=== PATIENT | female | born 1985 | race Caucasian/White ===

== ENCOUNTER 2018-05-03 09:40 | Inpatient (IN) ==
[2018-05-03] MEDS ORDERED: 0.9 % Sodium Chloride 1,000 ML IVC ONE (09:47)
[2018-05-03] MEDS ORDERED: Isovue-370 500 ML INFUS..BTL IV ONE (09:53)
--- NOTE | 2018-05-03 10:00 | Emergency Department Note ---
Disposition Clinical Impression: Groin abscess Cellulitis Qualifiers: Site of cellulitis: trunk Site of cellulitis of trunk: abdominal wall Qualified Code(s): L03.311 - Cellulitis of abdominal wall Disposition: Admitted As Inpatient Condition: Undetermined Referrals: NONE,PCP [Family Provider] - Forms: ED Satisfaction Letter Time of Disposition: 13:11 Skin/Abscess/FB HPI Chief complaint: ED Skin/Abscess/Foreign Body Stated complaint: "groin abscess" Time Seen by Provider: 05/03/18 09:46 Source: patient Mode of arrival: ambulatory Limitations: no limitations Nursing Notes Reviewed: Yes Vital Signs Reviewed: Yes HPI Narrative: 32-year-old female with history of MRSA and previous abscesses, arrives to the emergency department with abscess in her right inguinal region. The patient states this started roughly 4 days ago. The patient has been using hot compresses and heating pad which actually burned her. The patient denies any fevers but admits the patient states she went to [facility] where a evaluated her and stated that their surgeons are all on vacation and could not help sedate her pain. The patient left AMA that point. Patient denies any other complaints at this time other than chills. She is tearful in the room and is crying in pain. In triage the patient's abscess area burst open with purulent bloody discharge. Home Medications Medication Instructions Recorded Confirmed No Known Home Drugs 05/03/18 05/03/18 Allergies Allergy/AdvReac Type Severity Reaction Status Date / Time azithromycin [From Zithromax] Allergy See Verified 05/03/18 09:44 Comments All systems ED: reviewed and negative except as stated. Constitutional: Reports: chills. Denies: fever, weakness ENT ED: Denies: congestion Cardiovascular: Denies: chest pain Respiratory: Denies: dyspnea Gastrointestinal: Reports: nausea. Denies: abdominal pain, vomiting, diarrhea Genitourinary: Denies: urgency, dysuria Musculoskeletal: Denies: back pain, neck pain Integumentary: Reports: lesions Neurological: Denies: headache Past Medical History - Past Medical History Attestation: Yes The following information was validated with the patient. Source: patient Medical history: Reports: no medical history Surgical history: Reports: non-contributory Psychiatric history: Reports: anxiety, depression - Social History Smoking Status: Current every day smoker Smokeless Tobacco Status: No Alcohol use: Reports: none Drug use: Reports: marijuana Physical Exam - General Limitations: no limitations General appearance: alert - Head Head exam: atraumatic, normocephalic, normal inspection - Eye Eye exam: Present: normal appearance, PERRL, EOMI - ENT ENT exam: normal exam, normal oropharynx, mucous membranes moist - Neck Neck exam: Present: normal inspection, full ROM, trachea midline - Chest Chest inspection: Present: normal inspection, symmetric chest wall rise - Respiratory Respiratory exam: Present: normal lung sounds bilaterally - Cardiovascular Cardiovascular exam: Present: normal rhythm, tachycardia, normal heart sounds - Abdominal Exam Abdominal exam: Present: soft, tenderness (Right inguinal region). Absent: distention, guarding, rebound, rigidity, scar - Extremities Exam Extremities exam: Present: normal inspection, full ROM. Absent: tenderness, pedal edema - Neurological Exam Neurological exam: Present: alert, oriented X3 - Skin Skin exam: Present: warm, dry, other (13 x 4 cm area of induration in right inguinal region. Surrouding cellulitis noted around abscess. Small opening with purulent and bloody discharge. Hot to the touch.) Course - Consultations Consultation #1: Spoke to Dr. Clark in general surgery who will see patient. Time: 13:02 Vital Signs Temperature 98.1 F 05/03/18 09:43 Pulse Rate 121 05/03/18 09:43 Respiratory Rate 18 05/03/18 09:43 Blood Pressure 136/79 05/03/18 09:43 O2 Sat by Pulse Oximetry 100 05/03/18 09:43 Temperature 98.1 F 05/03/18 09:47 Pulse Rate 92 05/03/18 12:09 Respiratory Rate 16 05/03/18 12:09 Blood Pressure 131/80 05/03/18 12:09 O2 Sat by Pulse Oximetry 97 05/03/18 12:09 Oxygen Delivery Oxygen Delivery Room Air Skin/Abscess/Foreign Body - MDM Narrative Medical decision making narrative: Patient's workup in the emergency department demonstrates findings concerning for cellulitis informing abscess of the right abdomen. The patient sialitis is extensive and beginning to radiate in the lateral aspects. The patient was given 1 dose of vancomycin and we will place the patient on cefepime as well. General surgery was consulted given the location of her abscess and cellulitis. We will admit the patient to the hospital at this time. Her tachycardia has resolved. The patient still complaining a large amount of pain. We do not feel comfortable discharging the patient home at this time. Patient was made aware and agrees to plan. No further questions or concerns. General surgery, Dr. Clark, will see the patient in consultation. Accepted by Dr. Brito. - Lab Data Lab results reviewed: Yes I reviewed the patient's lab results. Result diagrams: 05/03/18 09:51 05/03/18 11:00 Lab Results 05/03/18 05/03/18 05/03/18 Range/Units 09:51 09:51 10:01 WBC 9.2 (4.3-11.1) K/mcL RBC 4.25 (3.82-4.97) M/mcL Hgb 13.4 (11.5-15.4) g/dL Hct 39.1 (35.3-44.9) % MCV 92.0 (83.0-100.0) fL MCH 31.5 (28.0-33.3) pg MCHC 34.3 (31.6-35.5) g/dL RDW 12.8 (11.5-14.5) % Plt Count 220 (140-400) K/mcL MPV 9.9 (9.4-12.4) fL Immature Gran % 0.2 (0-4) % Seg Neutrophils % 75.9 % Lymphocytes % 12.6 % Monocytes % 10.4 % Eosinophils % 0.7 % Basophils % 0.2 % Neutrophils # 7.0 (1.6-8.9) K/mcL Lymphocytes # 1.2 (0.6-4.6) K/mcL Monocytes # 1.0 (0.0-1.3) K/mcL Eosinophils # 0.1 (0.0-0.6) K/mcL Basophils # 0.0 (0.0-0.2) K/mcL Carbon Dioxide (23-29) mEq/L BUN (6-20) mg/dL Glucose (70-105) mg/dL Lactic Acid 1.7 (0.5-2.2) mmol/L Calcium (8.6-10.3) mg/dL Serum , Qual (Negative) Urine Test (Negative) Specimen Rejected Hemolyzed 05/03/18 05/03/18 05/03/18 Range/Units 11:00 11:28 11:32 WBC (4.3-11.1) K/mcL RBC (3.82-4.97) M/mcL Hgb (11.5-15.4) g/dL Hct (35.3-44.9) % MCV (83.0-100.0) fL MCH (28.0-33.3) pg MCHC (31.6-35.5) g/dL RDW (11.5-14.5) % Plt Count (140-400) K/mcL MPV (9.4-12.4) fL Immature Gran % (0-4) % Seg Neutrophils % % Lymphocytes % % Monocytes % % Eosinophils % % Basophils % % Neutrophils # (1.6-8.9) K/mcL Lymphocytes # (0.6-4.6) K/mcL Monocytes # (0.0-1.3) K/mcL Eosinophils # (0.0-0.6) K/mcL Basophils # (0.0-0.2) K/mcL Carbon Dioxide 28 (23-29) mEq/L BUN 10 (6-20) mg/dL Glucose 120 H (70-105) mg/dL Lactic Acid (0.5-2.2) mmol/L Calcium 8.6 (8.6-10.3) mg/dL Serum , Qual Negative (Negative) Urine Test Negative (Negative) Specimen Rejected - Radiology Data Radiology results reviewed: Yes I reviewed the patient's radiology results. Abdomen/Pelvis CT 05/03/18 09:53 IMPRESSION: 1. Inflammatory stranding within the right inguinal soft tissues likely representing cellulitis with small developing abscess. 2. Hepatomegaly. D/ / Alfred Neal MD / Alfred Neal MD Interpreting Provider: Alfred Neal MD
[2018-05-03 10:16] LABS: Basophils % 0.2 %; Eosinophils # 0.1 K/mcL (0.0-0.6); Eosinophils % 0.7 %; Hematocrit 39.1 % (35.3-44.9); Hemoglobin 13.4 g/dL (11.5-15.4); Immature Granulocytes % 0.2 % (0-4); Lymphocytes # 1.2 K/mcL (0.6-4.6); Lymphocytes % 12.6 %; Mean Corpuscular HGB Conc 34.3 g/dL (31.6-35.5); Mean Corpuscular Hemoglobin 31.5 pg (28.0-33.3); Mean Platelet Volume 9.9 fL (9.4-12.4); Monocytes % 10.4 %; Platelet Count 220 K/mcL (140-400); Red Blood Count 4.25 M/mcL (3.82-4.97); Red Cell Distribution Width 12.8 % (11.5-14.5); Segmented Neutrophils % 75.9 %
--- NOTE | 2018-05-03 10:39 | Emergency Department Note ---
Disposition Clinical Impression: Groin abscess Disposition: Admitted As Inpatient Referrals: NONE,PCP [Family Provider] - Forms: ED Satisfaction Letter General Adult HPI - General Chief complaint: ED Skin/Abscess/Foreign Body Stated complaint: "groin abscess" Time Seen by Provider: 05/03/18 09:46 Source: patient Mode of arrival: ambulatory Limitations: no limitations - History of Present Illness Pain Scale: 10 - Related Data Allergies Allergy/AdvReac Type Severity Reaction Status Date / Time azithromycin [From Zithromax] Allergy See Verified 05/03/18 09:44 Comments Constitutional: Reports: chills. Denies: fever, weakness ENT ED: Denies: congestion Cardiovascular: Denies: chest pain Respiratory: Denies: dyspnea Gastrointestinal: Reports: nausea. Denies: abdominal pain, vomiting, diarrhea Genitourinary: Denies: urgency, dysuria Musculoskeletal: Denies: back pain, neck pain Integumentary: Reports: lesions Neurological: Denies: headache Past Medical History - Past Medical History Medical history: Reports: no medical history Surgical history: Reports: non-contributory Psychiatric history: Reports: anxiety, depression - Social History Smoking Status: Current every day smoker Smokeless Tobacco Status: No Alcohol use: Reports: none Drug use: Reports: marijuana Physical Exam - General Limitations: no limitations General appearance: alert Course Vital Signs Temperature 98.1 F 05/03/18 09:43 Pulse Rate 121 05/03/18 09:43 Respiratory Rate 18 05/03/18 09:43 Blood Pressure 136/79 05/03/18 09:43 O2 Sat by Pulse Oximetry 100 05/03/18 09:43 Temperature 98.1 F 05/03/18 09:47 Pulse Rate 121 05/03/18 09:47 Respiratory Rate 18 05/03/18 09:47 Blood Pressure 136/79 05/03/18 09:47 O2 Sat by Pulse Oximetry 100 05/03/18 09:47 Oxygen Delivery Oxygen Delivery Room Air Medical Decision Making - Lab Data Result diagrams: 05/03/18 09:51 Lab Results 05/03/18 05/03/18 Range/Units 09:51 10:01 WBC 9.2 (4.3-11.1) K/mcL RBC 4.25 (3.82-4.97) M/mcL Hgb 13.4 (11.5-15.4) g/dL Hct 39.1 (35.3-44.9) % MCV 92.0 (83.0-100.0) fL MCH 31.5 (28.0-33.3) pg MCHC 34.3 (31.6-35.5) g/dL RDW 12.8 (11.5-14.5) % Plt Count 220 (140-400) K/mcL MPV 9.9 (9.4-12.4) fL Immature Gran % 0.2 (0-4) % Seg Neutrophils % 75.9 % Lymphocytes % 12.6 % Monocytes % 10.4 % Eosinophils % 0.7 % Basophils % 0.2 % Neutrophils # 7.0 (1.6-8.9) K/mcL Lymphocytes # 1.2 (0.6-4.6) K/mcL Monocytes # 1.0 (0.0-1.3) K/mcL Eosinophils # 0.1 (0.0-0.6) K/mcL Basophils # 0.0 (0.0-0.2) K/mcL Lactic Acid 1.7 (0.5-2.2) mmol/L Attestation Statement - Attestation Attestation: I examined this patient and my medical decision-making was reviewed with the Resident Physician. I agree with the documented findings, disposition and treatment plan as described except to the extent set forth below. 32 mike wolfe female prsnet sot the ED who is previous IVDA but recovering and states that she has had a hsitory of axillary abscesses inthe past and inthe past our days she has develoepd a right groin cellultits likekly secondary to a infected hair follicle and states that in the past four days it has started to indurate and spread the erythematous across her right hip and she is now tachycrdiac to 121. We will do sepsis workup and then admit tomedicine wiht IVF and ABX and also obtain a CT of the pelvis wit IV contrast and possibly consult surgery if needed
[2018-05-03] MEDS ORDERED: *HR* FentaNYL (PF) 100 MCG/2 ML VIAL IVP ONE ×2 (11:10→12:54)
[2018-05-03 11:31] LABS: Blood Urea Nitrogen 10 mg/dL (6-20); Calcium 8.6 mg/dL (8.6-10.3); Carbon Dioxide 28 mEq/L (23-29); Glucose 120 mg/dL (70-105)
[2018-05-03] MEDS ORDERED: Ketorolac 15 MG/ML VIAL IVP ONE (12:54)
[2018-05-03] MEDS ORDERED: Piperacillin/Tazobactam 3.375 GM in 0.9 % Sodium Chloride Mini Bag 100 ML IVPB ONE (13:09)
[2018-05-03] MEDS ORDERED: Naloxone 0.4 MG/ML INJ IVP PRN ×2 (13:19→18:30)
[2018-05-03] MEDS ORDERED: OXYCODONE Oral CONC 10 MG/0.5 ML ORAL.SYG SL PRN ×2 (13:24→18:30)
[2018-05-03] MEDS ORDERED: 0.9 % Sodium Chloride 1,000 ML IVC SCH ×2 (13:30→18:30)
[2018-05-03 14:31] LABS: BUN/Creatinine Ratio 15 (6-26); Chloride 106 mEq/L (98-107); Osmolality,Calculated 286 (280-300); Potassium 3.6 mEq/L (3.5-5.1); Sodium 138 mEq/L (136-145); eGFR For African Americans > 60 (> 60); eGFR For Non-African Americans > 60 (> 60)
--- NOTE | 2018-05-03 15:02 | General Surgery Consult Note ---
<Liliana Kramer - Last Filed: 05/03/18 14:54> Date of Encounter: 05/03/18 Time of Encounter: 14:00 Assessment and Plan (1) Cellulitis Current Visit: Yes Status: Acute Large area of induration in the right groin. There is an isolated area of round opening (consistent with a puncture wound) in the right groin, lateral to pubic hairs. The induration extends aprox 20 cm posteriorly from this area. There are also multiple small scabbed areas on the mons pubis consistent with "picking." There is no fluctuatance noted. She does not provide a date for her last IVDU. She is tachycardic (HR 122) on admission. CT of the abdomen and pelvis without contrast noted inflammatory stranding in the right inguinal soft tissues, and ill-defined fluid collection in the subcutaneous tissues measuring 3.3 x 1.5 cm, enlarged right inguinal lymph nodes , no SQ gas is noted. Pt preemtively refuses bedside I&D stating that she did not tolerate "being awake and watching when they tried to remove the cyst under my arm. I kept screaming out and would not hold still for them." plan: agree with hospitalist admission and management continue IV antibiotics per primary team Serial exams Further recommendations pending development of abscess vs cellulitis Warm moist compresses 20 mins Q2 hours Repeat am labs Qualifiers: Site of cellulitis: trunk Site of cellulitis of trunk: groin Qualified Code(s): L03.314 - Cellulitis of groin (2) History of intravenous drug abuse Current Visit: Yes Status: Chronic (3) Marijuana use Current Visit: Yes Status: Chronic History of Present Illness Consult date: 05/03/18 Reason for consult: other (right groin abscess) Requesting physician: Cyn Jarrett History of present illness: Nancy is a 32 year old female with a past medical history of IV drug use, marijuana smoking, anxiety, depression, cysts in underarm, and a surgical history of axilary cyst excision. Her boyfriend is present for subjective information and she states he is able to remain. Subjective information is obtained via chart review and patient interview. She presented on 05/03/2018 with a 4 day history of right groin redness and pain. Patient reports "picking at a hair, and it got out of control." She endorses increased discomfort, fever, chills, redness, swelling, and feelings of heart racing. She denies headache, dizziness, CP, or SOB. She endorses other small areas in the lower abdomen that she has "picked at or burnt with the heating pad because she was trying heat on the abscess." She reports a history of MRSA and the need for axillary cyst excision "a couple years ago," which she did "not tolerate very well," stating she was unable to remain still and "kept screaming out and moving." She does not elaborate on her most recent episode of IVDU. Past Med Surg Social Fam HX - Past Medical History Source: patient, old records reviewed Medical history: other (MRSA, abscesses, IVDU) Psychiatric history: anxiety, depression - Past Surgical History Surgical History: other (Left axillary cyst/abscess excision) - Social History Smoking Status: Current every day smoker Smokeless Tobacco Status: No Alcohol use: none Drug use: marijuana, IV Drug Use Current living situation: Home - Independent Activity Level: Independent ambulation Recent Out of Country Travel Within the Last 8 Weeks: No Exposure or Possible Exposure to Illness During Travel: No Medications and Allergies No Known Home Drugs 05/03/18 [History] 3 Allergy/AdvReac Type Severity Reaction Status Date / Time azithromycin [From Zithromax] Allergy See Verified 05/03/18 09:44 Comments Review of Systems All systems PM: reviewed and no additional remarkable complaints except as stated All systems PM: The remainder of the systems were reviewed and are negative General Surgery Exam Initial Vital Signs Temp Pulse Resp BP Pulse Ox 98.1 F 121 18 136/79 100 05/03/18 09:43 05/03/18 09:43 05/03/18 09:43 05/03/18 09:43 05/03/18 09:43 VITAL SIGNS: Reviewed. See [facility] GENERAL: In no apparent distress. HEENT: Normocephalic, atraumatic, pupils are equal and reactive, extraocular motions intact, oropharynx is pink and moist, there is no neck adenopathy or JVD noted. Nose and lips piercings noted CHEST/RESPIRATORY: The thorax is free from signs of trauma. Lung sounds: clear to auscultation, normal respiratory effort CARDIAC: tachycardic rate and regular rhythm. Normal S1 and S2, without murmurs , gallops, or rubs. VASCULAR: No Edema. 2+ peripheral pulses. No petechiae noted ABDOMEN: soft, nontender, hypoactive bowel sounds MUSCULOSKELETAL: Good range of motion of all major joints. Extremities without clubbing, cyanosis or edema. NEUROLOGIC EXAM: Alert and oriented x 3. Anxious, Speech is pressured. Follows commands. PSYCHIATRIC: Mood normal. SKIN: Large area of induration in the right groin. There is an isolated area of round opening (consistent with a puncture wound) in the right groin, lateral to pubic hairs. The induration extends aprox 20 cm posteriorly from this area. There are also multiple small scabbed areas on the mons pubis consistent with "picking." There is no fluctuatance noted. Exam Initial Vital Signs Temp Pulse Resp BP Pulse Ox 98.1 F 121 18 136/79 100 05/03/18 09:43 05/03/18 09:43 05/03/18 09:43 05/03/18 09:43 05/03/18 09:43 Results - Labs 05/03/18 09:51 05/03/18 11:00 Abnormal lab results Glucose 120 mg/dL (70-105) H 05/03/18 11:00 Diabetes panel 05/03/18 Range/Units 11:00 Sodium 138 (136-145) mEq/L Potassium 3.6 (3.5-5.1) mEq/L Chloride 106 (98-107) mEq/L Carbon Dioxide 28 (23-29) mEq/L BUN 10 (6-20) mg/dL Creatinine 0.67 (0.60-1.20) mg/dL Glucose 120 H (70-105) mg/dL Calcium 8.6 (8.6-10.3) mg/dL Calcium panel 05/03/18 Range/Units 11:00 Calcium 8.6 (8.6-10.3) mg/dL Pituitary panel 05/03/18 Range/Units 11:00 Sodium 138 (136-145) mEq/L Potassium 3.6 (3.5-5.1) mEq/L Chloride 106 (98-107) mEq/L Carbon Dioxide 28 (23-29) mEq/L BUN 10 (6-20) mg/dL Creatinine 0.67 (0.60-1.20) mg/dL Glucose 120 H (70-105) mg/dL Calcium 8.6 (8.6-10.3) mg/dL Adrenal panel 05/03/18 Range/Units 11:00 Sodium 138 (136-145) mEq/L Potassium 3.6 (3.5-5.1) mEq/L Chloride 106 (98-107) mEq/L Carbon Dioxide 28 (23-29) mEq/L BUN 10 (6-20) mg/dL Creatinine 0.67 (0.60-1.20) mg/dL Glucose 120 H (70-105) mg/dL Calcium 8.6 (8.6-10.3) mg/dL All other labs normal. - Imaging CT scan - abdomen: report reviewed CT scan - pelvis: report reviewed Consult Discharge Plan - Plan <Nathalia Clark - Last Filed: 05/03/18 17:00> Date of Encounter: 05/03/18 Assessment and Plan (1) Groin abscess Current Visit: Yes Status: Acute discussed with patient that she is draining pus from her right groin, the area is tense under pressure, tender and she will have relief after and I/D of right groin abscess, will plan in OR, risks and benefits discussed and she wishes to proceed npo ivf antibiotics History of Present Illness Reason for consult: other Past Med Surg Social Fam HX - Past Medical History Source: patient Medical history: other - Past Surgical History Surgical History: other Review of Systems All systems PM: reviewed and no additional remarkable complaints except as stated All systems PM: The remainder of the systems were reviewed and are negative General Surgery Exam Initial Vital Signs Temp Pulse Resp BP Pulse Ox 98.1 F 121 18 136/79 100 05/03/18 09:43 05/03/18 09:43 05/03/18 09:43 05/03/18 09:43 05/03/18 09:43 - General physical appearance well developed, well nourished, moderate distress, moderate pain - Eyes PERRL, normal ocular movement - ENT normal mucosa, normocephalic - Neck trachea midline - Respiratory normal expansion, normal respiratory effort - Cardiovascular Cardiovascular exam: Present: RRR - Integumentary Integumentary general surgery: Present: other (right groin and lower abdomen erythematous, tense, tender, draining pus focally) - Neurologic Present: CN 2-12 grossly intact - Musculoskeletal Present: normal posture - Psychiatric Psychiatric general surgery: Present: A&Ox3, speech is normal Exam Initial Vital Signs Temp Pulse Resp BP Pulse Ox 98.1 F 121 18 136/79 100 05/03/18 09:43 05/03/18 09:43 05/03/18 09:43 05/03/18 09:43 05/03/18 09:43 Results - Labs 05/03/18 09:51 05/03/18 11:00 Abnormal lab results Glucose 120 mg/dL (70-105) H 05/03/18 11:00 Urine Opiates Screen Positive ng/mL (Fzymkl=[id number]) H 05/03/18 11:28 U Marijuana (THC) Screen Positive ng/mL (Cutoff = 50) H 05/03/18 11:28 All other labs normal. - Imaging CT scan - abdomen: report reviewed, image reviewed CT scan - pelvis: report reviewed, image reviewed - Attending Attestation I have personally performed a face to face evaluation on this patient. I have reviewed and agree with the care plan. History and Exam by me shows:
--- NOTE | 2018-05-03 15:39 | Internal Med History&Physical ---
Date of Encounter: 05/03/18 Time of Encounter: 15:30 Internal Medicine - H&P: HPI Chief complaint: Groin swelling and pain of 4 days duration History of present illness: Ms. Smith is a 32 year old female with pmh of IV drug abuse (per documentation), marijuana abuse, previsous axillary cyst excision presenting with complaints of groin and lower abdominal swelling and redness for about 4 days. Patient says she was picking at an infected hair follicle in groin when it began to get red and swelled up. She applied a heating pad for about a day with norelief. The pain and redness conitnued to get worse and that's why se came to the ER today. In the ER, a CT scan showed inflammatory stranding in the right inguinal soft tissues, and ill-defined fluid collection in the subcutaneous tissues measuring 3.3 x 1.5 cm, enlarged right inguinal lymph nodes, no SQ gas is noted. she was started on broad spectrum antibiotics with vanc and zosyn and surgery was consulted Past Med Surg Social Fam HX - Past Medical History Medical history: other (MRSA, abscesses, IVDU) Psychiatric history: anxiety, depression - Past Surgical History Surgical History: other (Left axillary cyst/abscess excision) - Social History Smoking Status: Current every day smoker Smokeless Tobacco Status: No Alcohol use: none Drug use: marijuana, IV Drug Use Internal Medicine - H&P: Meds No Known Home Drugs 05/03/18 [History] 3 Allergy/AdvReac Type Severity Reaction Status Date / Time azithromycin [From Zithromax] Allergy See Verified 05/03/18 09:44 Comments All Systems PM: A 10-system review of systems was performed and is negative for pertinent findings except as documented above in the HPI. - Constitutional Constitutional: no chills, no fever(s), no night sweats - EENT Eyes: no change in vision, no discharge, no pain, no photophobia Ears: no ear discharge, no ear pain, no tinnitus Nose, mouth and throat: no dysphagia, no nasal discharge, no neck pain, no sore throat - Cardiovascular Cardiovascular ROS IM: no chest pain, no diaphoresis, no dyspnea, no lightheadedness, no palpitations, no syncope - Respiratory Respiratory: no cough, no dyspnea, no wheezing, no excessive phlegm production - Gastrointestinal Gastrointestinal: no abdominal pain, no diarrhea, no hematemesis, no hematochezia, no melena, no nausea, no vomiting - Genitourinary Genitourinary: no change in urinary stream, no dysuria, no flank pain, no hematuria Additional comments: right groin swelling and redness - Musculoskeletal Musculoskeletal ROS IM: no numbness, no tingling - Integumentary Integumentary IM: no rash, no unusual bruising - Neurological Neurological ROS: no confusion, no convulsions, no focal weakness, no numbness, no tingling, no tremor(s) - Hematologic/Lymphatic Hematologic/Lymphatic: no easy bruising - Constitutional Vitals: Temp Pulse Resp BP Pulse Ox 98.1 F 84 16 115/55 97 05/03/18 09:47 05/03/18 13:10 05/03/18 13:10 05/03/18 13:10 05/03/18 13:10 - Head Head exam: Present: atraumatic, normocephalic - Eye Eye exam: Present: PERRL, conjuntiva pink, sclera anicteric Pupils: Present: PERRL - Neck Neck exam general surgery: Present: supple, trachea midline. Absent: lymphadenopathy - Respiratory Respiratory exam: Present: CTAB. Absent: accessory muscle use, rales, rhonchi, wheezes - Cardiovascular Cardiovascular exam: Present: RRR, +S1, +S2. Absent: diastolic murmur, gallop, rubs, systolic murmur - GI/Abdominal GI/Abdominal exam: Present: normal bowel sounds, soft, tenderness, no peritoneal signs. Absent: distended Additional comments: right lower quadrant redness, right groin tenderness - Extremities Exam Extremities exam: Present: warm, radial pulses palpable and symmetrical. Absent : calf tenderness, cyanotic, pedal edema - Neurological Exam Neurological exam: Present: CN II-XII intact, oriented X3, no focal deficits. Absent: pronater drift, facial droop, speech deficit - Skin Skin exam: Present: dry, intact Internal Med - H&P Results - Labs CBC & Chem 7: 05/03/18 09:51 05/03/18 11:00 Labs: Short CBC 05/03/18 Range/Units 09:51 WBC 9.2 (4.3-11.1) K/mcL Hgb 13.4 (11.5-15.4) g/dL Hct 39.1 (35.3-44.9) % Plt Count 220 (140-400) K/mcL Neutrophils # 7.0 (1.6-8.9) K/mcL BMP 05/03/18 11:00 Sodium 138 Potassium 3.6 Chloride 106 Carbon Dioxide 28 BUN 10 Creatinine 0.67 Glucose 120 H Calcium 8.6 - Impressions ITS Impressions Abdomen/Pelvis CT 05/03/18 09:53 IMPRESSION: 1. Inflammatory stranding within the right inguinal soft tissues likely representing cellulitis with small developing abscess. 2. Hepatomegaly. D/ / Alfred Neal MD / Alfred Neal MD Interpreting Provider: Alfred Neal MD - Assessment and plan (1) Groin abscess Current Visit: Yes Status: Acute Assessment and plan: Right groin abscess s/p picking at infected hair follicle according to patient. Started on vanc and zosyn. Continue warm moist compressses. Follow surgery recs (2) Cellulitis Current Visit: Yes Status: Acute Assessment and plan: On vanc and zosyn Qualifiers: Site of cellulitis: trunk Site of cellulitis of trunk: groin Qualified Code(s): L03.314 - Cellulitis of groin (3) DVT prophylaxis Current Visit: Yes Status: Acute Assessment and plan: sc heparin (4) History of intravenous drug abuse Current Visit: Yes Status: Chronic Assessment and plan: Counseling (5) Marijuana use Current Visit: Yes Status: Chronic Assessment and plan: Counseling - Time Spent With Patient Total time spent is greater than 50% in coordination of care (as documented) at patient's floor/unit and/or counseling patient:
[2018-05-03 16:43] LABS: Amphetamine Screen,Urine Negative ng/mL (Cutoff=1000); Barbiturate Screen,Urine Negative ng/mL (Cutoff=200); Benzodiazepines Screen,Urine Negative ng/mL (Cutoff=200); Cannabinoid Screen,Urine Positive ng/mL (Cutoff = 50); Cocaine Screen,Urine Negative ng/mL (Cutoff= 300); Opiate Screen,Urine Positive ng/mL (Cutoff=300); Phencyclidine Screen,Urine Negative ng/mL (Cutoff=25)
--- NOTE | 2018-05-03 16:55 | Anesthesia Evaluation PreOp ---
Date of Encounter: 05/03/18 Time of Encounter: 16:54 - Past History Planned Operation: I & D Abscess Right Groin Cardiac History: Denies any Significant Hx Pulmonary History: Smoker (17 years) MANAGER FLOOR History: Denies Any Significant HX Other Medical History: Denies Any Significant HX, Other (anxiety/depression) Anesthesia History: No Prior Anesthetic Complications, Past Anesthesia Test: Negative (05/03/2018) Alcohol Use: none Drug use: marijuana, IV Drug Use Medications and Allergies No Known Home Drugs 05/03/18 [History] 3 Allergy/AdvReac Type Severity Reaction Status Date / Time azithromycin [From Zithromax] Allergy See Verified 05/03/18 09:44 Comments - Meds/Allergy Pre-op Review Medications Reviewed: Yes Allergies Reviewed: Yes Beta Blockers on Current Med List: No Anesthesia Results - Labs 05/03/18 09:51 05/03/18 11:00 Laboratory Tests 05/03/18 11:28 Urine Test Negative Anesthesia Exam Vital Signs/O2 Sat, Most Current Temp Pulse Resp BP Pulse Ox 98.1 F 82 16 112/69 97 05/03/18 09:47 05/03/18 16:00 05/03/18 16:00 05/03/18 16:00 05/03/18 16:00 Height: 5'6''/1.68m Weight: 180 lbs/81.65 kg NPO (# of Hours): 8 Pain Scale: 0 Pain Scale Used: Numeric (1 - 10) - HEENT Pupil (Motor): EOMI Mallampati: II Teeth: Normal Oral Opening: Greater than 3 - MANAGER FLOOR LOC: Oriented MANAGER FLOOR Motor: Normal RUE, Normal LUE, Normal RLE, Normal LLE, Normal Face MANAGER FLOOR Sensory: Normal: RUE, LUE, RLE, LLE, Face - Cardiac Rhythm: Regular Murmur: None - Pulmonary Breath Sounds: bilateral Clear Respiratory Effort: Symmetrical Anesthesia Assess/Plan ASA Score: 3 Modified Radha Scale for Level of Consciousness: Cooperative, oriented, and tranquil Anesthetic Plan: General Monitoring Plan: Standard Monitors Recovery Plan: PACU
[2018-05-03] MEDS ORDERED: *HR* Midazolam HCl 2 MG/2 ML VIAL ONE (17:13)
[2018-05-03] MEDS ORDERED: *HR* FentaNYL (PF) 100 MCG/2 ML VIAL ONE (17:13)
[2018-05-03] MEDS ORDERED: Lidocaine -MPF 2% 2 ML VIAL ONE (17:13)
[2018-05-03] MEDS ORDERED: Dexamethasone 4 MG/ML VIAL ONE (17:13)
[2018-05-03] MEDS ORDERED: Ondansetron 4 MG/2 ML VIAL ONE (17:13)
[2018-05-03] MEDS ORDERED: *HR* Propofol 200 MG/20 ML VIAL IVP ONE (17:14)
[2018-05-03] MEDS ORDERED: *HR* OxyCODONE/APAP 5/325 TABLET PO PRN (17:50)
[2018-05-03] MEDS ORDERED: *HR* Promethazine 25 MG/ML VIAL IVP PRN (17:50)
[2018-05-03] MEDS ORDERED: *HR* OxyCODONE Immed Rel 5 MG TABLET PO PRN (17:50)
--- NOTE | 2018-05-03 17:56 | Operative Note ---
Date of procedure: 05/03/18 Pre-op diagnosis: Right groin abscess Post-op diagnosis: same Procedure: Incision and drainage right groin abscess Complications: none immediate Anesthesia: GETA Surgeon: Nathalia Clark Was there an assistant director present: No Estimated blood loss (cc): 3 Specimen: aerobic/anaerobic cultures Condition: stable Disposition: PACU Procedure in Detail: Patient was brought to the operating suite and placed supine on the operating table. Sign in was performed and everyone was in agreement. Anesthesia was induced and patient had an LMA placed by anesthesia without incident. The right groin, upper thigh, right lower quadrant was prepped and draped in the usual sterile fashion. Timeout was performed again everyone was in agreement. Elliptical incision through the skin and the subcutaneous tissue overlying the pinpoint draining abscesses made with an 11 blade. Pus resulted from the wound and aerobic and anaerobic cultures were obtained. The abscess cavity was suctioned with the Yankauer. A hemostat was used to break up any loculations within the abscess cavity. The wound was irrigated with sterile saline. The abscess cavity was packed with quarter inch iodoform packing, cover with 4 x 4 gauze secured with Medipore tape. All lap and instrument counts are correct at the end of the case. The patient tolerated the procedure well. She was awoken by anesthesia and LMA was removed without incident. She was taken to PACU in stable condition.
[2018-05-03] MEDS ORDERED: *HR* Heparin 5,000 UNIT/ML VIAL SQ SCH (18:00)
--- NOTE | 2018-05-03 18:29 | Anesthesia Evaluation Post Op ---
Date of Encounter: 05/03/18 Time of Encounter: 18:28 - Vital Signs Vital Signs: Vital Signs/O2 Sat, Most Current Temp Pulse Resp BP Pulse Ox 99.6 F 76 16 118/53 97 05/03/18 18:23 05/03/18 18:23 05/03/18 18:23 05/03/18 18:23 05/03/18 18:23 - Lungs Lungs: Clear Ascult./Percussion - Airway Airway: Non-obstructed - Cardiovascular Regular Rate - Mental Status Mental Status: Asleep with brisk response to light stimulation - Pain Pain Scale: 0 Pain Scale used: Numeric (1 - 10) - Nausea Vomiting Nausea Vomiting: Not Present - Hydration Hydration: Ice chips, Has not voided - Discharge PostOp Status: Transfer Patient to floor
[2018-05-03] MEDS: *HR* OxyCODONE/APAP 5/325 TABLET PO PRN (22:14)
[2018-05-03] MEDS: Piperacillin/Tazobactam 3.375 GM in 0.9 % Sodium Chloride Mini Bag 100 ML IVPB SCH (23:46)
[2018-05-04] MEDS ORDERED: Piperacillin/Tazobactam 3.375 GM in 0.9 % Sodium Chloride Mini Bag 100 ML IVPB SCH
[2018-05-04] MEDS: *HR* OxyCODONE/APAP 5/325 TABLET PO PRN ×2 (02:31→07:07)
[2018-05-04] MEDS ORDERED: *HR* Heparin 5,000 UNIT/ML VIAL SQ SCH (06:00)
[2018-05-04 06:59] LABS: Basophils % 0.1 %; Hematocrit 33.4 % (35.3-44.9); Immature Granulocytes % 0.3 % (0-4); Lymphocytes # 1.2 K/mcL (0.6-4.6); Mean Corpuscular HGB Conc 33.8 g/dL (31.6-35.5); Mean Corpuscular Hemoglobin 31.5 pg (28.0-33.3); Mean Platelet Volume 10.2 fL (9.4-12.4); Monocytes # 0.9 K/mcL (0.0-1.3); Monocytes % 10.6 %; Neutrophils # 6.7 K/mcL (1.6-8.9); Platelet Count 190 K/mcL (140-400); Red Blood Count 3.59 M/mcL (3.82-4.97); Red Cell Distribution Width 12.6 % (11.5-14.5)
[2018-05-04 07:00] LABS: Hemoglobin 11.3 g/dL (11.5-15.4)
[2018-05-04 07:18] VITALS: BP 113/73
[2018-05-04 07:25] LABS: BUN/Creatinine Ratio 19 (6-26); Blood Urea Nitrogen 11 mg/dL (6-20); Calcium 8.8 mg/dL (8.6-10.3); Carbon Dioxide 22 mEq/L (23-29); Chloride 112 mEq/L (98-107); Glucose 127 mg/dL (70-105); Magnesium 1.8 mg/dL (1.6-2.6); Osmolality,Calculated 291 (280-300); Phosphorous 3.6 mg/dL (2.7-4.5); Potassium 3.8 mEq/L (3.5-5.1); Sodium 140 mEq/L (136-145); eGFR For African Americans > 60 (> 60); eGFR For Non-African Americans > 60 (> 60)
[2018-05-04] MEDS: Piperacillin/Tazobactam 3.375 GM in 0.9 % Sodium Chloride Mini Bag 100 ML IVPB SCH (07:53)
--- NOTE | 2018-05-04 09:13 | General Surgery Progress Note ---
Date of Encounter: 05/04/18 Time of Encounter: 09:07 - Assessment and Plan (1) Cellulitis Current Visit: Yes Status: Acute POD #1 I&D right groin abscess. Cultures pending. Pt refuses to remain in the hospital. Noted she pulled her IV access out and refused replacement. I did review the recommendations of remaining in the hospital for continued IV antibiotics and wound care. Pt informed the risks of leaving AMA include worsening condition, fever, discomfort, sepsis, and further morbidity up to and including . Pt verbalizes understanding. Pt will be provided wit prescriptions for ATBX coverage, wound care supplies, and a referal has been made to home health. Follow up in the office in one week Qualifiers: Site of cellulitis: trunk Site of cellulitis of trunk: groin Qualified Code(s): L03.314 - Cellulitis of groin (2) History of intravenous drug abuse Current Visit: Yes Status: Chronic (3) Marijuana use Current Visit: Yes Status: Chronic Subjective Patient reports: still having pain, pain is less, voiding w/o difficulty Narrative: Pt states she is "restless, tired, and I want to go home." Objective Vital Signs - Last 8 Hours Temp Pulse Resp BP Pulse Ox 05/04/18 07:15 98.5 F 61 14 113/73 98 05/04/18 03:49 98.2 F 61 14 129/81 100 Intake and Output 05/03/18 05/04/18 05/04/18 23:59 07:59 15:59 Intake Total 1100 / 1100 1100 / 1100 Output Total 3 / 3 Balance 1097 / 1097 1100 / 1100 Intake: IV Fluids 1100 / 1100 1100 / 1100 0.9 % Sodium Chloride 1,000 ML 1000 / 1000 750 / 750 @ 75 mls/hr IVC .[id number] [facility] Rx #:[id number] Zosyn 3.375 GM In 0.9 % Sodium 100 / 100 100 / 100 Chloride (Mini-Bag +) 100 ML @ 25 mls/hr IVPB Q8HR JOY[facility] Rx#: [id number] Vancocin 1,000 MG In 0.9 % 250 / 250 Sodium Chloride 250 ML @ 167 mls/hr IVPB Q8H [facility] Rx#: [id number] Output: Estimated Blood Loss 3 / 3 Other: # Voids 1 1 Weight 82 kg Patient Weight 05/04/18 23:59 Weight 82 kg - Labs 05/04/18 06:26 05/04/18 06:26 Diabetes panel 05/04/18 Range/Units 06:26 Sodium 140 (136-145) mEq/L Potassium 3.8 (3.5-5.1) mEq/L Chloride 112 H (98-107) mEq/L Carbon Dioxide 22 L (23-29) mEq/L BUN 11 (6-20) mg/dL Creatinine 0.59 L (0.60-1.20) mg/dL Glucose 127 H (70-105) mg/dL Calcium 8.8 (8.6-10.3) mg/dL Calcium panel 05/04/18 Range/Units 06:26 Calcium 8.8 (8.6-10.3) mg/dL Phosphorus 3.6 (2.7-4.5) mg/dL Pituitary panel 05/04/18 Range/Units 06:26 Sodium 140 (136-145) mEq/L Potassium 3.8 (3.5-5.1) mEq/L Chloride 112 H (98-107) mEq/L Carbon Dioxide 22 L (23-29) mEq/L BUN 11 (6-20) mg/dL Creatinine 0.59 L (0.60-1.20) mg/dL Glucose 127 H (70-105) mg/dL Calcium 8.8 (8.6-10.3) mg/dL Adrenal panel 05/04/18 Range/Units 06:26 Sodium 140 (136-145) mEq/L Potassium 3.8 (3.5-5.1) mEq/L Chloride 112 H (98-107) mEq/L Carbon Dioxide 22 L (23-29) mEq/L BUN 11 (6-20) mg/dL Creatinine 0.59 L (0.60-1.20) mg/dL Glucose 127 H (70-105) mg/dL Calcium 8.8 (8.6-10.3) mg/dL - VTE Documentation of Mechanical Device: Intermittent pneumatic compression device Consult Discharge Plan - Plan Instructions: Abscess (GEN) Additional Instructions: Daily wound care: Remove dressing and packing. Shower with antibacterial soap. Repack with 1/4 inch plain gauze. Cover with a dry dressing. Take your antibiotics as directed. Do not stop them without talking to your provider. Referrals: Adrienne Boone ASSISTANT FLOOR COVERING PRINTER [Primary Care Provider] - NONE,PCP [Family Provider] - Liliana Kramer CNP [Advanced Practice Nurse] - 05/11/18 3:00 pm Prescriptions: Ibuprofen 800 mg PO Q8H #30 tablet Sulfamethoxazole/Trimeth DS [Bactrim DS] 1 each PO BID 14 Days #28 tablet
[2018-05-04] MEDS ORDERED: Aminoglycoside Consult 1 EACH MC ONE (10:09)
--- NOTE | 2018-05-04 11:22 | Discharge Summary ---
- NOTES TO OUTPATIENT PROVIDER Notes to Outpatient Provider: Signed out AMA after getting I&D done for R groin abscess, sent home with oral abx Orders not resulted at time of discharge: Pending orders 05/03/18 18:05 Culture,Anaerobic [RM] Routine Culture,Tissue (Biopsy) [] Routine Date of Encounter: 05/04/18 Time of Encounter: 10:10 - Discharge Diagnosis (1) Groin abscess Priority: Primary Status: Acute (2) Cellulitis Priority: Secondary Status: Acute Qualifiers: Site of cellulitis: trunk Site of cellulitis of trunk: groin Qualified Code(s): L03.314 - Cellulitis of groin (3) History of intravenous drug abuse Priority: Secondary Status: Chronic (4) Marijuana use Priority: Secondary Status: Chronic (5) DVT prophylaxis Priority: Secondary Status: Acute Hospital course: Ms. Smith is a 32 year old female with history of IV drug use presented to the hospital with right groin swelling and subjective fever. She had a CT scan done which showed right groin abscess and surrounding stranding of the right inguinal soft tissues. She was started on IV antibiotics and was taken to the OR for I&D. She pulled out her IV overnight but then refused replacement and wanted to sign out AMA. After explaining the risk of worsening condition, fever , discomfort, sepsis, and further morbidity up to and including , which she verbalized understanding to, she went home with a script for bactrim as well as ibuprofen. She had left the hospital prior to being seen by me. - Time Spent with Patient Total time spent providing and/or coordinating discharge services: Greater than 30 minutes (patient left AMA without being seen) - Discharge Medications Prescriptions: Ibuprofen 800 mg PO Q8H #30 tablet Sulfamethoxazole/Trimeth DS [Bactrim DS] 1 each PO BID 14 Days #28 tablet Home Medications: Ibuprofen 800 mg PO Q8H #30 tablet 05/04/18 [Rx] Sulfamethoxazole/Trimeth DS [Bactrim DS] 1 each PO BID 14 Days #28 tablet [Rx] Allergies/Adverse Reactions: 3 Allergy/AdvReac Type Severity Reaction Status Date / Time azithromycin [From Zithromax] Allergy See Verified 05/03/18 09:44 Comments Date of admission: 05/03/18 16:35 Primary care physician: Vibha Curry Consults: 05/04/18 09:06 Consult to Undercoater [CONS] Stat Reason for Consult: C for packing - Constitutional Vitals: Temp Pulse Resp BP Pulse Ox 98.5 F 61 14 113/73 98 05/04/18 07:15 05/04/18 07:15 05/04/18 07:15 05/04/18 07:15 05/04/18 07:15 Exam: Patient left before being examined - Patient Status Disposition: Home, Self-Care Condition: Undetermined Functional capacity at discharge: independent ambulation Overall status at discharge: patient is not back to baseline - Discharge Instructions Instructions: Abscess (GEN), Cellulitis (DC) Follow Up With: Liliana Kramer GORE SEAMER [Advanced Practice Nurse] - 05/11/18 3:00 pm NONE,PCP [Family Provider] - Additional Instructions: Daily wound care: Remove dressing and packing. Shower with antibacterial soap. Repack with 1/4 inch plain gauze. Cover with a dry dressing. Take your antibiotics as directed. Do not stop them without talking to your provider. - Diet and Activity Activity: increase activity as tolerated Diet: advance to your usual diet - VTE Documentation of Mechanical Device: Intermittent pneumatic compression device
== END 2018-05-04 10:10 | disposition home or self-care (01) | DRG 364 ==
LOC: 3ANU 09:40 → EMEROO 09:40 → SUATTDRO 16:35 → 3ANU 17:12
PROVIDERS: ADMIT Student in an Organized Health Care Education/Training Program; ATTEND Internal Medicine